=== PATIENT | male | born 1970 | race Caucasian/White ===

== ENCOUNTER → 2020-12-05 14:55 | Outpatient (BNVA) | payer OTHER, SELFPAY | PROVIDERS: PCP Physician Assistant Medical; Visit Provider Urology ==

== ENCOUNTER → 2021-03-06 10:49 | Outpatient (BNVA) | payer OTHER, SELFPAY | PROVIDERS: PCP Physician Assistant Medical; Visit Provider Urology ==

== ENCOUNTER → 2022-10-18 14:27 | Outpatient (BNVA) | payer SELFPAY | PROVIDERS: PCP Physician Assistant Medical; Visit Provider Nurse Practitioner Family ==

== ENCOUNTER 2023-10-20 14:26 | Outpatient (AMB) | payer OTHER, SELFPAY ==
--- NOTE | 2023-10-20 14:35 | A.OFFVIS_ITS ---
Intake Visit Reasons: 1y follow up Intake Note: Patient is present for erectile dysfunction Urology Medications: tadalafil Blood Thinner: none Registered Dental Hygienist Required: No Accompanied by: Self / Same As Patient Allergies metformin Allergy (Intermediate, Verified 10/20/23 16:00) upset stomach Medication List - Last Reconciled 10/20/23 by ESSIE Oneil dulaglutide (Trulicity) 18 mg subcut QWEEK empagliflozin (Jardiance) 25 mg PO DAILY tadalafil (Cialis) 20 mg PO .PRN PRN 90 days tadalafil 10 mg PO DAILY 90 days tirzepatide (Mounjaro) mg subcut QWEEK HPI Comments Details: Naren is a very pleasant 52 year old male patient of Dr. Ramos. He has a past medical history of diabetes mellitus, erectile dysfunction, hyperlipidemia, and obesity. He presents to the office today for follow-up of his erectile dysfunction. In discussion with the patient today he reports to be doing and feeling well. He reports to be happy with his erections with current daily dosing and PRN dosing of tadalafil as needed prior to sexual activity. He currently denies any bothersome urinary issues or concerns. He reports following up with his PSAs and annual JACQUES is with his PCP. When asked he denies urinary urgency, urinary frequency, incontinence, nocturia, hematuria, dysuria, foul smelling urine, changes to urinary stream, flank pain, fever, and or chills. In office urinalysis results reviewed with the patient today 3+ glucose however patient on Mounjaro otherwise within normal limits. 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 He otherwise offers no other issues or concerns at this time. Has had reasonable response combination therapy Emphasize trial of up to 20 mg tadalafil on demand Prescriptions provided Informed to continue with good diabetic control for improvement in erectile dysfunction as well as overall health and well-being Erectile dysfunction Progressive Diabetic since 2014 Both challenges obtaining and maintaining erection Had tried 5 mg daily Cialis with minimal benefit Increase dosage to tadalafil 10 mg daily, add on demand tadalafil 10-20 mg Review in 1 year [facility] Medical History Diabetes mellitus Obesity Hyperlipidemia Erectile dysfunction Surgical History History of vasectomy Social History Alcohol intake: never Patient Tobacco Use Status: Never used Tobacco Review of Systems Const All systems reviewed & are unremarkable except as noted in HPI and below Reports as per HPI Eyes Reports no additional complaints ENT Reports no additional complaints Card Reports as per HPI Resp Reports no additional complaints GI Reports no additional complaints Reports as per HPI Musc Reports no additional complaints Neuro Reports no additional complaints Psych Reports no additional complaints Endo Reports as per HPI Physical Exam Const General: cooperative, healthy appearing, comfortable, no acute distress, well developed, alert and awake Orientation/consciousness: patient oriented x3 Limitations: no limitations HEENT Head: Yes normal to inspection, Yes normocephalic and Yes atraumatic Ears: hearing grossly normal bilaterally Face and sinus: Yes normal facial exam Mouth: moist mucous membranes Eyes General: appearance normal, both eyes and all related structures Neck Neck: Yes normal visual inspection, Yes full ROM and Yes trachea midline Chest Chest palpation & inspection: normal inspection of the chest Resp Effort & Inspection: normal respiratory effort, able to speak in complete sentences and no respiratory distress Cardio Rate: regular rate GI Inspection: Yes normal to inspection General: Yes no CVA tenderness Back/Spine/Pelvis Back: no CVA tenderness Cervical Spine: normal cervical lordosis Thoracic/Lumbar Spine: thoracic and lumbar spine normal to inspection Skin General skin exam: no rashes or lesions noted Neuro General: patient oriented x3, gait normal, tone normal and moves all extremities Extrem General: Yes normal to inspection and Yes capillary refill normal Psych Appearance: grossly normal and well kempt Mental Status: mental status grossly normal Speech and movement: Normal speech and movement present and Clear speech present Affect: normal affect Attitude: cooperative Thought process: Normal thought process present Thought content: Normal thought content present Insight: Good insight present (Psych) Judgement: Good judgement present (Psych) Results AMB Urinalysis, Automated UA Leukoctes 0 Ihsan/uL Last Edit by Melina Arnett on 10/20/23 16:01 UA Nitrite Negative Last Edit by Jesus [email or web address] Arnett on 10/20/23 16:01 UA Urobilinogen 0.2 mg/dL Last Edit by [email or web address] Arnett on 10/20/23 16:01 UA Protein 0 mg/dL Last Edit by Melina Arnett on 10/20/23 16:01 UA pH 5.5 Last Edit by Melina Arnett on 10/20/23 16:01 UA Blood 0 Luciano/uL Last Edit by Melina Arnett on 10/20/23 16:01 UA Specific [place] 1.020 Last Edit by Melina Arnett on 10/20/23 16:01 UA Ketone Negative Last Edit by Melina Arnett on 10/20/23 16:01 UA Bilirubin 0 mg/dL Last Edit by Melina Arnett on 10/20/23 16:01 UA Glucose 1000 mg/dL Last Edit by Melina Arnett on 10/20/23 16:01 Results Reviewed Results Reviewed: Laboratory Last Values Urine pH (Auto) 5.5 10/20/23 16:00 Specific [place] (Auto) 1.020 10/20/23 16:00 Urine Protein (Auto) 0 mg/dL 10/20/23 16:00 Glucose (UA)(Auto) 1000 mg/dL 10/20/23 16:00 Urine Ketones (Auto) Negative 10/20/23 16:00 Urine Blood (Auto) 0 Luciano/uL 10/20/23 16:00 Urine Nitrite (Auto) Negative 10/20/23 16:00 Urine Bilirubin (Auto) 0 mg/dL 10/20/23 16:00 Urine Urobilinogen (Auto) 0.2 mg/dL 10/20/23 16:00 Leukocyte Esterase (Auto) 0 Ihsan/uL 10/20/23 16:00 Assessment & Plan Assessment & Plan (1) Erectile dysfunction associated with type 2 diabetes mellitus: Code(s): E11.69 - Type 2 diabetes mellitus with other specified complication; N52.1 - Erectile dysfunction due to diseases classified elsewhere Category: Medical Plan In office urinalysis results reviewed with the patient today; as noted above. Patient currently denies any bothersome urinary issues or concerns. Continue tadalafil and p.r.n. dosing as prescribed; refills provided Discussed continuation of lifestyle modifications to assist with ED and over all health and well being. He reports be happy with current voiding parameters. Follow-up in 1 year; if not sooner with any issues, concerns, and or questions. Orders: Orders AMB Urinalysis Automated Today Z13.9 - Encounter for screening, unspecified Medications: Changed From tadalafil (Cialis) administer approximately 30min before sexual activity; do not use more than 1 dose per 24hrs [id number] [facility] Member [id number] 20 mg PO DAILY 90 days PRN 30 tabs 0RF sexual activity To tadalafil (Cialis) administer approximately 30min before sexual activity; do not use more than 1 dose per 24hrs [id number] [facility] Member [id number] [facility] Member [id number] 20 mg PO .PRN PRN 30 tabs 3RF sexual activity 90 days Refilled tadalafil 10 mg PO DAILY 90 tabs 3RF sexual activity 90 days E11.69 - Type 2 diabetes mellitus with other specified complication, N52.1 - Erectile dysfunction due to diseases classified elsewhere Patient Instructions: The patient had an opportunity to ask questions regarding the treatment plan. All questions were answered. Physical exam, labs, and imaging were discussed and reviewed in detail. As well as risks, benefits, and discussion of treatment choices. No major barriers to understanding were identified. The patient expressed understanding and agreement with the above treatment plan. The patient was made aware they should contact our office by phone for worsening of their current condition, the appearance of new symptoms, or with any questions or concerns. Compliance is encouraged with any medications and follow up testing that is ordered. It is a privilege to be allowed the opportunity to participate in? your urological care.? Again, if you have any questions or concerns If you have any questions or concerns please do not hesitate to contact me. The office is [phone]. This note is constructed using voice recognition software. While every effort has been made to ensure accuracy box maker paperboard errors may have been included. Yours sincerely, ESSIE Oneil Coding Level of Care Code Est Pt Level 3 (14290) Diagnoses Erectile dysfunction associated with type 2 diabetes mellitus E11.69; N52.1
== END 2023-10-20 14:50 | disposition home or self-care (01) ==
PROVIDERS: PCP Physician Assistant Medical; Visit Provider Nurse Practitioner Family
DX: E11.69 Type 2 diabetes mellitus with other specified complication (principal); N52.1 Erectile dysfunction due to diseases classified elsewhere; Z13.9 Encounter for screening, unspecified
CPT/HCPCS: 99213

== ENCOUNTER → 2023-10-20 14:26 | Outpatient (BNVA) | payer OTHER, SELFPAY | PROVIDERS: PCP Physician Assistant Medical; Visit Provider Nurse Practitioner Family | DX: E11.69 Type 2 diabetes mellitus with other specified complication (principal); N52.1 Erectile dysfunction due to diseases classified elsewhere; Z79.899 Other long term (current) drug therapy | CPT/HCPCS: 81003 ==

== ENCOUNTER 2025-03-12 09:00 | Outpatient (AMB) | payer OTHER, SELFPAY ==
--- NOTE | 2025-03-12 09:27 | A.OFFVIS_ITS ---
Intake Visit Reasons: 1y f/u Intake Note: Patient is present for a 1yr follow up Urology Medications:Tadalafil Blood Thinner:None Antibiotic Allergy:None Legal Recovery Specialist Required: No Accompanied by: Self / Same As Patient Allergies metformin Allergy (Intermediate, Verified 03/12/25 10:12) upset stomach Medication List - Last Reconciled 03/12/25 by ESSIE Oneil dulaglutide (Trulicity) 18 mg subcut QWEEK empagliflozin (Jardiance) 25 mg PO DAILY tadalafil (Cialis) 20 mg PO .PRN PRN 90 days tadalafil 10 mg PO DAILY 90 days tirzepatide (Mounjaro) mg subcut QWEEK HPI Comments Details: Naren is a very pleasant 54 year old male patient of Dr. Ramos. He has a past medical history of diabetes mellitus, erectile dysfunction, hyperlipidemia, and obesity. He presents to the office today for follow-up of his erectile dysfunction. In discussion with the patient today he reports to be doing and feeling well. He reports to be happy with his erections with current daily dosing and PRN dosing of tadalafil as needed prior to sexual activity. He currently denies any bothersome urinary issues or concerns. He reports following up with his PSAs and annual JACQUES is with his PCP. When asked he denies urinary urgency, urinary frequency, incontinence, nocturia, hematuria, dysuria, foul smelling urine, changes to urinary stream, flank pain, fever, and or chills. In office urinalysis results reviewed with the patient today 3+ glucose however patient on Mounjaro otherwise within normal limits. He otherwise offers no other issues or concerns at this time. Has had reasonable response combination therapy Emphasize trial of up to 20 mg tadalafil on demand Prescriptions provided Informed to continue with good diabetic control for improvement in erectile dysfunction as well as overall health and well-being Erectile dysfunction Progressive Diabetic since 2014 Both challenges obtaining and maintaining erection Had tried 5 mg daily Cialis with minimal benefit Increase dosage to tadalafil 10 mg daily, add on demand tadalafil 10-20 mg Review in 1 year [facility] Medical History Diabetes mellitus Obesity Hyperlipidemia Erectile dysfunction Surgical History History of vasectomy Social History Alcohol intake: never Patient Tobacco Use Status: Never used Tobacco Review of Systems Const All systems reviewed & are unremarkable except as noted in HPI and below Physical Exam Const General: cooperative, healthy appearing, comfortable, no acute distress, well developed, alert and awake Orientation/consciousness: patient oriented x3 Limitations: no limitations HEENT Head: Yes normal to inspection, Yes normocephalic and Yes atraumatic Ears: hearing grossly normal bilaterally Eyes General: appearance normal, both eyes and all related structures Neck Neck: Yes normal visual inspection and Yes trachea midline Chest Chest palpation & inspection: normal inspection of the chest Resp Effort & Inspection: normal respiratory effort and able to speak in complete sentences Cardio Rate: regular rate GI Inspection: Yes normal to inspection General: Yes no CVA tenderness Back/Spine/Pelvis Back: no CVA tenderness Skin General skin exam: no rashes or lesions noted Neuro General: patient oriented x3 Extrem General: Yes normal to inspection Psych Appearance: grossly normal and well kempt Mental Status: mental status grossly normal Speech and movement: Normal speech and movement present and Clear speech present Affect: normal affect Attitude: cooperative Thought process: Normal thought process present Thought content: Normal thought content present Insight: Fair insight present (Psych) Judgement: Fair judgement present (Psych) Assessment & Plan Assessment & Plan (1) Erectile dysfunction associated with type 2 diabetes mellitus: Code(s): E11.69 - Type 2 diabetes mellitus with other specified complication; N52.1 - Erectile dysfunction due to diseases classified elsewhere Category: Medical Plan In office urinalysis results reviewed with the patient today; as noted above. Patient currently denies any bothersome urinary issues or concerns. He reports be happy with current voiding parameters. Continue tadalafil and p.r.n. dosing as prescribed; refills provided Discussed continuation of lifestyle modifications to assist with ED and over all health and well being. Will obtain PSA, and testosterone, and A1c Follow-up in 1 year labs to be completed prior; or sooner with any issues, concerns, and or questions. Orders: Orders Hemoglobin A1c Today E11.69 - Type 2 diabetes mellitus with other specified complication, N52.1 - Erectile dysfunction due to diseases classified elsewhere Prostate Specific Antigen Today E11.69 - Type 2 diabetes mellitus with other specified complication, N52.1 - Erectile dysfunction due to diseases classified elsewhere Testosterone, Free/Total Today E11.69 - Type 2 diabetes mellitus with other specified complication, N52.1 - Erectile dysfunction due to diseases classified elsewhere Patient Instructions: The patient had an opportunity to ask questions regarding the treatment plan. All questions were answered. Physical exam, labs, and imaging were discussed and reviewed in detail. As well as risks, benefits, and discussion of treatment choices. No major barriers to understanding were identified. The patient expressed understanding and agreement with the above treatment plan. The patient was made aware they should contact our office by phone for worsening of their current condition, the appearance of new symptoms, or with any questions or concerns. Compliance is encouraged with any medications and follow up testing that is ordered. It is a privilege to be allowed the opportunity to participate in? your urological care.? Again, if you have any questions or concerns If you have any questions or concerns please do not hesitate to contact me. The office is [phone]. This note is constructed using voice recognition software. While every effort has been made to ensure accuracy scientific specialist errors may have been included. Yours sincerely, ESSIE Oneil Coding Level of Care Code Est Pt Level 3 (70411) Diagnoses Erectile dysfunction associated with type 2 diabetes mellitus E11.69; N52.1
== END 2025-03-12 10:12 | disposition home or self-care (01) ==
LOC: HO.HUSH 09:00
PROVIDERS: PCP Physician Assistant Medical; Visit Provider Nurse Practitioner Family
DX: E11.69 Type 2 diabetes mellitus with other specified complication (principal); N52.1 Erectile dysfunction due to diseases classified elsewhere; N52.9 Male erectile dysfunction, unspecified
CPT/HCPCS: 99213

== ENCOUNTER → 2025-03-12 09:00 | Outpatient (BNVA) | payer OTHER, SELFPAY | PROVIDERS: PCP Physician Assistant Medical; Visit Provider Nurse Practitioner Family | DX: E11.69 Type 2 diabetes mellitus with other specified complication (principal); N52.1 Erectile dysfunction due to diseases classified elsewhere; Z79.85 Long-term (current) use of injectable non-insulin antidiabetic drugs; Z79.84 Long term (current) use of oral hypoglycemic drugs | CPT/HCPCS: 81003 ==